=== PATIENT | male | born 1950 | race Caucasian/White ===

== ENCOUNTER → 2022-12-09 12:06 | Outpatient (CLI) | payer OTHER, MEDICARE, SELFPAY ==
--- NOTE | 2022-12-09 12:13 | DI.RAD.S_ITS ---
PROCEDURE: XR LUMBAR SPINE MIN 4V INDICATIONS: low back pain TECHNIQUE: 5 views of the lumbar spine were acquired, including bilateral oblique views. COMPARISON: None. FINDINGS: Bones: 5 nonrib-bearing vertebrae are present. There is normal bony alignment. No vertebral body compression fractures. No suspicious bony lesions. Multilevel disc space narrowing degenerative endplate changes. Multilevel facet hypertrophy. Right hip arthroplasty is partially imaged. Degenerative changes are seen in the left hip. Soft tissues: Overlying bowel gas pattern is normal. Aortic atherosclerotic calcifications. Oblique images: No pars defects. IMPRESSION: Moderate multilevel spondylosis. Approved by: Steven Alfonso M.D. on 12/09/2022 at 20:53
== END ==
PROVIDERS: PCP Family Medicine; Referring Provider Anesthesiology; Visit Provider Anesthesiology
DX: M48.061 Spinal stenosis, lumbar region without neurogenic claudication (principal); M47.816 Spondylosis without myelopathy or radiculopathy, lumbar region
CPT/HCPCS: 72110